=== PATIENT | female | born 1960 | race Caucasian/White ===

== ENCOUNTER 2018-12-07 20:28 | Emergency (ER) | payer OTHER ==
[2018-12-07 20:48] VITALS: BP 144/82; PULSE 77; TEMP 98.3; O2SAT 98
--- NOTE | 2018-12-07 21:05 | C.PDOC ---
History Of Present Illness 58 year old female presents to the ER with family after she slipped outside down four steps and and twisted her right ankle at approximately 6:30pm-7pm. Denies weakness, numbness, or prior injury to the ankle. Patient is on letrozole for right breast cancer. Time Seen by Provider: 12/07/18 20:43 Chief Complaint (Nursing): Lower Extremity Problem/Injury History Per: Family History/Exam Limitations: no limitations Onset/Duration Of Symptoms: Hrs Current Symptoms Are (Timing): Still Present Recent travel outside of the [place]: No - Ankle/Foot Description Of Injury: Twisted Past Medical History Reviewed: Historical Data, Nursing Documentation, Vital Signs Vital Signs: Last Vital Signs Temp 98.3 F 12/07/18 20:40 Pulse 77 12/07/18 20:40 Resp 22 12/07/18 20:40 BP 144/82 12/07/18 20:40 Pulse Ox 98 12/07/18 20:40 - Medical History PMH: Denies: Chronic Kidney Disease Family History: States: Unknown Family Hx - Social History Hx Alcohol Use: No Hx Substance Use: No - Immunization History Hx Tetanus Toxoid Vaccination: No Hx Influenza Vaccination: Yes Hx Pneumococcal Vaccination: No Review Of Systems Constitutional: Negative for: Fever, Weakness Eyes: Negative for: Redness ENT: Negative for: Ear Pain Cardiovascular: Negative for: Chest Pain, Palpitations, Light Headedness Respiratory: Negative for: Cough, Shortness of Breath Gastrointestinal: Negative for: Abdominal Pain Genitourinary: Negative for: Dysuria Musculoskeletal: Positive for: Other (Right ankle pain) Neurological: Negative for: Weakness, Numbness Physical Exam - Physical Exam Appears: Non-toxic Skin: Normal Color, Warm, Dry Head: Atraumatic, Normacephalic Eye(s): bilateral: Normal Inspection Oral Mucosa: Moist Neck: Normal ROM Chest: Symmetrical, No Tenderness Cardiovascular: Rhythm Regular, No Friction Rub, No Murmur Respiratory: Normal Breath Sounds, No Wheezing Gastrointestinal/Abdominal: Normal Exam, No Tenderness Back: Normal Inspection, No CVA Tenderness Extremity: Capillary Refill (<2 seconds), No Deformity, Other (Moderate swelling and tenderness to right lateral malleolus) Pulses: Left Dorsalis Pedis: Normal, Right Dorsalis Pedis: Normal Neurological/Psych: Oriented x3, Normal Speech, Normal Motor, Normal Sensation Gait: Unable To Assess ED Course And Treatment O2 Sat by Pulse Oximetry: 98 (Room air) Pulse Ox Interpretation: Normal Medical Decision Making Medical Decision Making: Xrays are negative for fracture. Posterior splint was offered to the patient but refuses stating she wants a splint that she can remove. Patient was instructed to follow up with Ortho/Podiatry. Patient was instructed in crutch training. Disposition - Disposition Referrals: Amelie Mcintyre MD [Staff Provider] - Ivelisse Rush MD [Staff Provider] - Disposition: HOME/ ROUTINE Disposition Time: 21:46 Condition: GOOD Additional Instructions: Follow up with the Orthopedist within 1-2 days. Return if worsened. 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 - Scribe Statement The provider has reviewed the documentation as recorded by the Scribdash Nuñez All medical record entries made by the Scribdash were at my direction and personally dictated by me. I have reviewed the chart and agree that the record accurately reflects my personal performance of the history, physical exam, medical decision making, and the department course for this patient. I have also personally directed, reviewed, and agree with the discharge instructions and disposition.
[2018-12-07 22:23] VITALS: RESP 20
--- NOTE | 2018-12-08 08:38 | RAD ---
Date of service: zzz 12/07/2018 PROCEDURE: Right Foot Radiographs. HISTORY: pain to the lateral foot, injury COMPARISON: None. FINDINGS: BONES: On series 1, image 1 frontal view a 7 mm separate ossification projects just lateral to the cuboid calcaneal articulation. Here marked soft tissue swelling is seen. And osseous avulsed fracture not obvious chip fracture fragment is 1 consideration. Donor site not clear on oblique view no similarly sized os peroneum noted. However this is not entirely excluded. 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 IMPRESSION: 7 mm separate ossification lateral to cuboid calcaneal level-with the regional prominent soft tissue swelling here. The osseous avulsion/chip fracture injury needs to be considered. In donor site not the clear. If clinically indicated, a CT the foot may assist with clarification. A developmental variant os peroneum with prominent regional soft tissue swelling is in the differential. Comments: Study marked for PA review .
--- NOTE | 2018-12-08 09:04 | RAD ---
Date of service: 12/07/2018 PROCEDURE: Right Ankle Radiographs. HISTORY: ankle injury, pain COMPARISON: None available. FINDINGS: BONES: An ossification 6 by 3 mm borders the medial navicular bone on series 1, image 1 (this is medial not lateral as noted on the same-day right foot x-ray). An unfused ossification center here is 1 consideration.. This is not appreciated on other views. No prominent medial soft tissue swelling seen. The lateral position ossification at the cuboid calcaneal level the right foot same-day x-ray is difficult to perceive on this right ankle exam. Soft tissue swelling over dorsal midfoot and soft tissue swelling/increased density of the fat at the tibiotalar level also noted. A very faint flake osseous avulsion is suspect per series 3, image 1 lateral view this is just dorsal to the navicular bone. There is regional soft tissue swelling here. JOINTS: No marked osteoarthrosis. Ankle mortise maintained. Talar dome intact SOFT TISSUES: Soft tissue swelling-mainly dorsal lateral aspect as above. OTHER FINDINGS: Withee's tendon insetional enesthesophyte. IMPRESSION: Possible medial unfused ossification center bordering the navicular bone-discussed above. Probable flake like osseous avulsion bordering the dorsal navicular bone.Given regional soft tissue swelling an acute osseous avulsion is suspect Comments: Study marked for PA review .
== END 2018-12-07 22:22 | disposition home or self-care (01) ==
LOC: C.ER 20:28
DX: S93.401A Sprain of unspecified ligament of right ankle, initial encounter (principal); X50.9XXA Other and unspecified overexertion or strenuous movements or postures, initial encounter